=== PATIENT | female | born 1995 | race Caucasian/White ===

== ENCOUNTER 2021-06-18 08:41 | Emergency (ER) | payer OTHER ==
[2021-06-18 09:28] LABS: BASOPHIL 0.7 % (0-2); EOSINOPHIL 0.6 % (0-5); HGB 13.6 g/dl (12.5-16.0); LYMPHOCYTE 32.3 % (15-48); MCH 29.4 pg (25.0-31.0); MCHC 34.9 g/dL (32.0-36.0); MCV 84.4 fL (78.0-100.0); MONOCYTE 7.6 % (0-12); MPV 10.7 fL (6.0-9.5); NEUTROPHIL 58.4 % (41-80); NRBC 0; PLT 196 K/uL (150-400); RBC 4.62 M/uL (4.20-5.40); RDW 12.4 % (11.5-14.0); WBC 5.4 K/uL (4.0-10.5)
[2021-06-18 09:49] LABS: BUN/CREAT RATIO (CALC) 16.9 RATIO; CREATININE 0.77 mg/dL (0.51-0.95); POTASSIUM 4.3 mmol/L (3.5-5.1)
== END 2021-06-18 11:01 | disposition home or self-care (01) ==
LOC: FER 08:41
PROVIDERS: Emergency Medicine
DX: R07.89 Other chest pain (principal); M94.0 Chondrocostal junction syndrome [Tietze]; I10 Essential (primary) hypertension; F17.290 Nicotine dependence, other tobacco product, uncomplicated
CPT/HCPCS: 36415; 71045; 80048; 84484; 85025; 93005; J1885